=== PATIENT | female | born 1960 | race Caucasian/White ===

== ENCOUNTER 2024-02-27 09:50 | Day surgery (SDC) | payer OTHER ==
[~2024-02-27] VITALS: Ht 162.6 cm; Wt 59.9 kg
[2024-02-27] MEDS ORDERED: LIDOCAINE 2% 100 MG/5 ML UJET TP ONE (12:08)
[2024-02-27] MEDS ORDERED: fentaNYL citrate 0.05 MG/ML VIAL ONE (12:08)
[2024-02-27] MEDS ORDERED: MIDAZOLAM 5 MG/5 ML VIAL ONE (12:15)
[2024-02-27] MEDS: fentaNYL citrate 0.05 MG/ML VIAL IVP ONE (12:25)
[2024-02-27] MEDS: MIDAZOLAM 2 MG/2 ML VIAL IVP ONE (12:25)
== END 2024-02-27 13:35 | disposition home or self-care (01) ==
LOC: MDS 09:50 → MMU 10:08 → MDS 13:35
PROVIDERS: ATTEND Internal Medicine Gastroenterology
DX: K59.00 Constipation, unspecified (principal); I10 Essential (primary) hypertension; E78.00 Pure hypercholesterolemia, unspecified; E11.9 Type 2 diabetes mellitus without complications; F32.A Depression, unspecified; J44.9 Chronic obstructive pulmonary disease, unspecified; M79.7 Fibromyalgia; F17.210 Nicotine dependence, cigarettes, uncomplicated; Z86.73 Personal history of transient ischemic attack (TIA), and cerebral infarction without residual deficits; Z90.49 Acquired absence of other specified parts of digestive tract; Z98.891 History of uterine scar from previous surgery; Z88.5 Allergy status to narcotic agent; Z88.6 Allergy status to analgesic agent; Z79.899 Other long term (current) drug therapy; Z98.890 Other specified postprocedural states
CPT/HCPCS: 45378; 82948; J2250; J3010